=== PATIENT | female | born 1960 | race Caucasian/White ===

== ENCOUNTER → 2018-07-03 | Outpatient (CLI) | payer OTHER, MEDICAID ==
[~2018-07-03] MED LIST: ALBUTEROL2.5 MG/3 M INH; DALIRESP500 MCG PO; HYDROCODON-ACE1 EAC5 PO; HYDROCODON-ACE1 EACH; LEVAQUIN 500 M500 M2 PO; METHOCARBAMOL500 M1 PO; OXYGEN; PREDNISONE 10 M10 MG PO; PROTONIX40 M2; SINGULAIR 10 MG10 M1 PO; SPIRIVA; TUDORZA PRESS400 MCG IH; VENTOLIN HFA INH8 GM INH
== END ==
LOC: M.RAD 06-18 14:46
DX: Z12.31 Encounter for screening mammogram for malignant neoplasm of breast (principal); M51.37 Other intervertebral disc degeneration, lumbosacral region; M16.11 Unilateral primary osteoarthritis, right hip; Z78.0 Asymptomatic menopausal state